=== PATIENT | male | born 1950 | race Caucasian/White ===

== ENCOUNTER → 2023-10-04 06:34 | Day surgery (SDC) | payer OTHER, SELFPAY | LOC: GI 06:34 | PROVIDERS: ATTENDING PHYSICIAN Specialist | DX: Z12.11 Encounter for screening for malignant neoplasm of colon (principal); D12.3 Benign neoplasm of transverse colon; K63.5 Polyp of colon; D17.5 Benign lipomatous neoplasm of intra-abdominal organs; K56.2 Volvulus; Z86.010 Personal history of colon polyps; Z80.0 Family history of malignant neoplasm of digestive organs | CPT/HCPCS: 45385; 45380; 88305 ==

== ENCOUNTER 2023-12-23 11:29 | Emergency (ER) | payer OTHER, SELFPAY ==
[2023-12-23 11:35] VITALS: BP 168/89
[2023-12-23 12:23] VITALS: BMI 36.8
[2023-12-23 12:26] VITALS: BP 143/81
--- NOTE | 2023-12-23 12:40 | EDRN ---
Cheryl DEE in room w/pt at this time.
--- NOTE | 2023-12-23 12:47 | ED.GENMED ---
History of Present Illness
General
Chief Complaint: Skin Problem
Source: patient
Exam Limitations: none
Time Seen by Provider: 12/23/23 12:34
History of Present Illness
History of Present Illness:
73-year-old male presents with abrasion to right anterior knee sustained yesterday. He knelt down on his driveway. He has had a callus on his right knee for quite some time perhaps 15 years that followed an infection in the same area. He has seen
the horse riding coach or instructor for this callus uses a pumice stone and every now and then shaved the callus down. Yesterday when he bent down to pick something up on his driveway he scraped the callus and part of it came off. He is worried about another
infection. No other complaints at this time
Past History
Past History
ED Past Medical History: HTN and Hypercholesterolemia
ED Past Surgical History: Orthopedic
Social History
Tobacco: Non-smoker
Personal:
Living: with family
Employment: Employed
Family History
Family History: CAD
Phy Exam
Physical Exam
Physical Exam:
General: Well-appearing male no acute respiratory distress
Skin: Thick callus noted of the anterior right knee. The superior aspect of the callus has avulsed from the base. No current bleeding. The base of the wound underneath the avulsion is well in appearance no surrounding erythema. Nontender
Musculoskeletal exam: Good range of motion right knee
Course
Vital Signs
Initial and Last Documented VS:
Initial Vital Signs
Temp Pulse Resp BP Pulse Ox
98.1 F 63 18 168/89 95
12/23/23 11:35 12/23/23 11:35 12/23/23 11:35 12/23/23 11:35 12/23/23 11:35
Last Documented Vital Signs
Temp Pulse Resp BP Pulse Ox
98.1 F 59 16 143/81 93
12/23/23 11:35 12/23/23 12:26 12/23/23 12:26 12/23/23 12:26 12/23/23 12:26
MDM/Problems Addressed
Differential Diagnosis Includes:
Abrasion right knee with partial avulsion of chronic callus to the anterior right knee. The avulsed portion was trimmed off with a pair of scissors. A dressing will be applied with antibacterial ointment gauze wrap. Given the history of infection
in this area, will start on Keflex for prophylaxis. Recommend follow-up with family doctor.
*Critical Care Note
Total Time (30-74mins, 75-104mins- exclusive of procedures): Not Applicable
ED Attending Note
-
Portions of this chart may have been created with voice recognition software.� Occasional wrong word or��sound alike� substitutions may have occurred due to the inherent limitations of voice recognition software.
Discharge Plan
Departure
Patient Disposition: Home (Routine Discharge)
Date of Disposition: 12/23/23
Time of Disposition: 12:50
Patient with high blood pressure during this ER visit?: No
Discharge Problem:
Abrasion
Prescriptions:
New
cephalexin 500 mg capsule
500 mg PO TID 7 Days Qty: 21 0RF
No Action
losartan [Cozaar] 100 MG tablet
100 mg PO DAILY
escitalopram oxalate 10 MG tablet
20 mg PO QPM
rosuvastatin 20 MG tablet
20 mg PO QPM
amlodipine 10 mg Tablet
10 mg PO DAILY
buspirone 10 mg Tablet
10 mg PO BID
gabapentin 100 mg Tablet
200 mg PO
trazodone 100 mg Tablet
200 mg PO HS
aspirin 81 mg Tablet,Chewable
81 mg PO DAILY Qty: 30 0RF
pyridostigmine bromide 30 mg tablet
30 mg PO BID PRN (Reason: double vision) Qty: 60 0RF
oxcarbazepine [Trileptal] 150 mg Tablet
See Rx Instructions .ROUTE .COMPLEX Qty: 180 0RF
Rx Instructions:
450 mg orally take in morning AND at 4 PM
oxcarbazepine [Trileptal] 300 mg Tablet
600 mg PO HS Qty: 0 0RF
Activity Restrictions/Additional Instructions:
Change dressing daily. Apply antibacterial ointment daily. Take antibiotic as directed. Return if worse otherwise follow-up with family
Interventions
Interventions:
*Risk Screen - Suicide Last Done: 12/23/23 11:35
*General Assessment Last Done: 12/23/23 11:35
*Neglect/Abuse Screening Last Done: 12/23/23 11:35
ED- Fall Risk Assessment Last Done: 12/23/23 12:24
*ED COVID-19 Vaccine History Last Done: 12/23/23 12:24
ED-Skin Assessment Last Done: 12/23/23 12:24
Discharge Date and Time
Print Language: MONGOLIAN
--- NOTE | 2023-12-23 13:04 | EDRN ---
R anterior knee dressed w/ double antibiotic ointment, telfa pad and kerlix.
== END 2023-12-23 13:15 | disposition home or self-care (01) ==
LOC: EMR 11:29
PROVIDERS: EMERGENCY PHYSICIAN Emergency Medicine; FAMILY PHYSICIAN Family Medicine
DX: S80.211A Abrasion, right knee, initial encounter (principal); X58.XXXA Exposure to other specified factors, initial encounter; I10 Essential (primary) hypertension; E78.00 Pure hypercholesterolemia, unspecified
CPT/HCPCS: 99282

== ENCOUNTER → 2024-01-09 09:49 | Outpatient (REF) | payer OTHER, SELFPAY | LOC: RAD 09:49 | PROVIDERS: ATTENDING PHYSICIAN Internal Medicine Cardiovascular Disease; FAMILY PHYSICIAN Family Medicine | DX: I25.10 Atherosclerotic heart disease of native coronary artery without angina pectoris (principal) | CPT/HCPCS: 76770 ==

== ENCOUNTER 2024-11-18 14:35 | Emergency (ER) | payer OTHER, SELFPAY ==
[2024-11-18 14:42] VITALS: BP 158/91
--- NOTE | 2024-11-18 16:21 | ED.MUSCINJ ---
HPI-Injury
General
Chief Complaint: Musculo-Skeletal Complaint
Source: patient
Exam Limitations: none
Time Seen by Provider: 11/18/24 16:10
Nursing documentation reviewed up to this point in time: agreed with
History of Present Illness-Injury
Initial Injury comments:
The patient is a 74-year-old male w h/o HTN, HLD, about 3 hours ago at home, involving a heavy backyard barbecue grill that fell over, striking his right mid monk. Approximately 20 minutes later, the patient noted a substantial swelling at the
site of impact. He described the area as a 'huge lump' but reported no significant pain hindering his mobility. The patient can walk and apply pressure on the affected leg. However, he experienced increased aching while attempting to maintain a
brisk pace. He has not experienced numbness or tingling in the leg.
Meds:
ASA 1 mg
Buspar
Lexapro
Past History
Past History
ED Past Medical History: HTN and Hypercholesterolemia
ED Past Surgical History: Orthopedic
Social History
Tobacco: Non-smoker
Personal:
Living: with family
Employment: Employed
Family History
Family History: CAD
Review of Systems
Review of Systems
Allergies reviewed?: Yes
All Other Systems: ROS reviewed and negative except as documented in HPI and ROS
Musculoskeletal: Reports other (swelling, bruising, tenderness mid right monk)
Phy Exam
Physical Exam
Physical Exam:
PHYSICAL EXAMINATION:
General: no apparent distress, not acutely ill
Neuro: alert and oriented.
Psychiatric: well kept. interactive and cooperative
Musculoskeletal: Moves with ease. Full range of motion of right lower extremity. No significant bony tenderness
Skin: Warm, pink. Small deep clean abrasion mid monk. Surrounded by moderate swelling and ecchymosis. Distal neurovascular intact.
Injury Course
Orders/Labs/Results
Orders:
Orders
11/18/24 14:44
Leg Tibia/Fibula, Right 2 View [CR Leg Tibia/fibula Right 2 Vw] Urgent
Comment:
Reason For Exam: pain/injury/swelling
11/18/24 16:29
Otoniel Wrap Right-Treatment ONCE
MDM/Problems Addressed
Differential Diagnosis Includes:
contusion, hematoma, fracture
MDM/Problems Addressed:
The patient is a 74-year-old male w h/o HTN, HLD, about 3 hours ago at home, involving a heavy backyard barbecue grill that fell over, striking his right mid monk. Approximately 20 minutes later, the patient noted a substantial swelling at the
site of impact. He described the area as a 'huge lump' but reported no significant pain hindering his mobility. The patient can walk and apply pressure on the affected leg. However, he experienced increased aching while attempting to maintain a
brisk pace. He has not experienced numbness or tingling in the leg.
Xray neg for fracture.
Pt ambulating well.
Is UTD with Tdap.
*Radiology
Radiology exam reviewed: preliminary read by ED provider
*Pulse Oximetry
SaO2: 96
Oxygen Mode of Delivery: Room air
Patient hypoxic: not evaluated
*Critical Care Note
Total Time (30-74mins, 75-104mins- exclusive of procedures): Not Applicable
ED Attending Note
-
Portions of this chart may have been created with voice recognition software.� Occasional wrong word or��sound alike� substitutions may have occurred due to the inherent limitations of voice recognition software.
Discharge Plan
Departure
Patient Disposition: Home (Routine Discharge)
Date of Disposition: 11/18/24
Time of Disposition: 16:31
Patient with high blood pressure during this ER visit?: No
Condition: Good
Discharge Problem:
Hematoma of right lower leg
Instructions: Using Cold for Pain, Hematoma
Prescriptions:
No Action
losartan [Cozaar] 100 MG tablet
100 mg PO DAILY
escitalopram oxalate 10 MG tablet
20 mg PO QPM
rosuvastatin 20 MG tablet
20 mg PO QPM
amlodipine 10 mg Tablet
10 mg PO DAILY
buspirone 10 mg Tablet
10 mg PO BID
gabapentin 100 mg Tablet
200 mg PO
trazodone 100 mg Tablet
200 mg PO HS
aspirin 81 mg Tablet,Chewable
81 mg PO DAILY Qty: 30 0RF
pyridostigmine bromide 30 mg tablet
30 mg PO BID PRN (Reason: double vision) Qty: 60 0RF
oxcarbazepine [Trileptal] 150 mg Tablet
See Rx Instructions .ROUTE .COMPLEX Qty: 180 0RF
Rx Instructions:
450 mg orally take in morning AND at 4 PM
oxcarbazepine [Trileptal] 300 mg Tablet
600 mg PO HS Qty: 0 0RF
cephalexin 500 mg capsule
500 mg PO TID 7 Days Qty: 21 0RF
Referrals:
Arlette Kee MD [Family Provider, Family Practice] - As needed
Activity Restrictions/Additional Instructions:
As we discussed, rest with the foot elevated to the level of your heart and apply Cold compress 20 minutes off and on as much as you can in the next 2 days.
[place] may pull the blood down and cause bruising down the leg and into the foot, this may look bad but it is not worrisome.
Interventions
Interventions:
*Risk Screen - Suicide Last Done: 11/18/24 14:42
*Neglect/Abuse Screening Last Done: 11/18/24 14:42
*Nursing Disposition Last Done: 11/18/24 17:22
ED-Musculoskeletal Assessment Last Done: 11/18/24 15:52
Discharge Date and Time
Discharge Date/Time: 11/18/24 17:23
Print Language: WALLISIAN
== END 2024-11-18 17:23 | disposition home or self-care (01) ==
LOC: EMR 14:35
PROVIDERS: EMERGENCY PHYSICIAN Emergency Medicine; FAMILY PHYSICIAN Family Medicine
DX: S80.11XA Contusion of right lower leg, initial encounter (principal); W20.8XXA Other cause of strike by thrown, projected or falling object, initial encounter; E78.00 Pure hypercholesterolemia, unspecified; I10 Essential (primary) hypertension
CPT/HCPCS: 99283; 73590

== ENCOUNTER 2024-12-13 13:20 | Emergency (ER) | payer OTHER, SELFPAY ==
[2024-12-13 13:23] VITALS: BP 184/90
[2024-12-13 13:32] VITALS: BP 136/84; BMI 27.5
--- NOTE | 2024-12-13 15:19 | ED.SKININJ ---
HPI-Injury
General
Chief Complaint: Skin Problem
Source: patient and spouse
Exam Limitations: none
Time Seen by Provider: 12/13/24 14:13
Nursing documentation reviewed up to this point in time: agreed with
History of Present Illness-Injury
Is this injury a work related problem?: No
Is pt an associate of [facility]?: No
Initial Injury comments:
Note:
CHIEF COMPLAINT(S)
Laceration to the left palmar distal index finger, middle finger, third finger, and pinky.
HISTORY OF PRESENT ILLNESS
A 74-year-old male presented with lacerations to the left palmar distal index finger, middle finger, third finger, and pinky. The patient mentions that he has high blood pressure, which is well-controlled with medication. During the examination, it
was determined that the lacerations would require suturing. The patient reported a history of swelling after a penicillin shot received years ago. Local anesthesia and digital blocks with lidocaine was planned for the fingers, along with thorough
washing of the wound and initiation of antibiotic therapy. The patient expressed willingness to adhere to the proposed treatment.
PAST MEDICAL AND SURGICAL HISTORY
Hypertension, well-controlled with medication.
ALLERGIES
Suspected allergy to penicillin noted due to swelling experienced after administration years ago.
REVIEW OF SYSTEMS
- Cardiovascular: Positive for high blood pressure.
- Skin: Lacerations present on the left palmar distal index, middle, third, and pinky fingers.
PHYSICAL EXAM
General: Alert, no acute distress.
Skin: Warm, dry. Dressing covers lacerations on left palmar distal index, middle, third, and pinky fingers.
Cardiovascular: Normal peripheral perfusion, capillary refill less than two seconds in all affected fingers.
Musculoskeletal: Full range of motion, normal tendon function in affected fingers.
PLAN
1. Administer local anesthesia with lidocaine to numb the affected fingers.
2. Irrigate and clean the wound thoroughly.
3. Suture the lacerations on the left palmar distal index, middle, third, and pinky fingers.
4. Prescribe an antibiotic course for a few days.
5. Monitor for any signs of allergic reaction to medications, especially antibiotics.
DIFFERENTIAL DIAGNOSIS
The Differential Diagnosis includes, in no particular order and is not limited to:
1. Laceration with potential for infection.
2. Soft tissue injury of the hand.
3. Tendon injury.
4. Nerve injury.
5. Foreign body in the wound.
6. Penicillin allergy.
7. Hypertension-related complications.
8. Bacterial skin infection.
9. Crush injury.
10. Fracture with soft tissue injury.
CARE-UPDATE
12/13/24 - 15:34
Sutures placed using 4-0 nylon on 2nd, 3rd, and 4th fingers. Tetanus status confirmed as current. Start prophylactic antibiotics and schedule follow-up with primary care in 7 to 10 days for suture removal. No additional injuries identified, and
neurovascular status remains intact.
Disposition:
SUMMARY OF ENCOUNTER
A 74-year-old male presented with lacerations to the left palmar distal index finger, middle finger, third finger, and pinky, requiring suturing. Due to a suspected allergy to penicillin, alternatives were considered for antibiotic therapy. The
patient�s tetanus status was confirmed as current. Local anesthesia with lidocaine was administered, the wound was thoroughly irrigated, and sutures were placed using 4-0 nylon.
DISPOSITION
Discharge home.
ASSESSMENT
Lacerations on the left hand involving the second, third, fourth, and fifth fingers.
PLAN
- Administer local anesthesia with lidocaine and perform wound irrigation.
- Suture lacerations using 4-0 nylon.
- Prescribe an appropriate antibiotic while monitoring for allergic reactions.
- Discharge with recommendations for follow-up care.
PROCEDURES
Suturing of lacerations on the left palmar distal second, third, fourth, and fifth fingers with 4-0 nylon sutures.
FOLLOW-UP INSTRUCTIONS
Follow up with primary care in seven to ten days for suture removal.
MEDICAL DECISION MAKING
-Complexity of Data Reviewed: Chronic conditions affecting care [Hypertension]
-Data:
Category 1
Testing indicated potential for infection and neurovascular compromise; ultimately resolved with imaging and clinical evaluation.
Category 2
My independent interpretation of hands-on examination and manual assessment confirmed tendon and nerve integrity remained unaffected.
-Risk: Prescription medication was prescribed and monitored for potential allergies due to the patients known penicillin-like reaction history.
DIAGNOSIS
- Laceration of left hand, finger(s), initial encounter (ICD-10: S61.419A)
Past History
Past History
ED Past Medical History: HTN and Hypercholesterolemia
ED Past Surgical History: Orthopedic
Social History
Tobacco: Non-smoker
Personal:
Living: with family
Employment: Employed
Family History
Family History: CAD
Phy Exam
Physical Exam
Physical Exam:
.
Course
Vital Signs
Initial and Last Documented VS:
Initial Vital Signs
Temp Pulse Resp BP Pulse Ox
98 F 94 16 184/90 100
12/13/24 13:23 12/13/24 13:23 12/13/24 13:23 12/13/24 13:23 12/13/24 13:23
Last Documented Vital Signs
Temp Pulse Resp BP Pulse Ox
98.2 F 82 20 136/84 99
12/13/24 13:32 12/13/24 13:32 12/13/24 13:32 12/13/24 13:32 12/13/24 15:20
Procedures
Laceration Closure
Left Palmar Finger(s):
Size of Wound in cm: 6
Description of Wound Edges: sharp and flap-well vascularized
Preparation: cleaned with soap & water, cleaned with saline and cleaned with Betadine
Anesthesia: 1% Lidocaine and Digital-Regional
Revision/Debridement: routine- no revision and irrigate-direct pressure
Wound exploration: explored to base- no FB
Type of Closure: single layer closure
Skin Closure Material: 4-0 nylon
Number of sutures: 12
*Pulse Oximetry
SaO2: 99
Oxygen Mode of Delivery: Room air
Patient hypoxic: no
*Critical Care Note
Total Time (30-74mins, 75-104mins- exclusive of procedures): Not Applicable
ED Attending Note
-
Portions of this chart may have been created with voice recognition software.� Occasional wrong word or��sound alike� substitutions may have occurred due to the inherent limitations of voice recognition software.
Discharge Plan
Departure
Patient Disposition: Home (Routine Discharge)
Date of Disposition: 12/13/24
Time of Disposition: 15:20
Patient with high blood pressure during this ER visit?: Yes
Condition: Good
Discharge Problem:
Laceration of multiple sites of left hand and fingers
Instructions: Wound Care (DC), Stitches - ED discharge instructions, BLOOD PRESSURE
Prescriptions:
New
cephalexin 500 mg capsule
500 mg PO TID 7 Days Qty: 21 0RF
No Action
losartan [Cozaar] 100 MG tablet
100 mg PO DAILY
escitalopram oxalate 10 MG tablet
20 mg PO QPM
rosuvastatin 20 MG tablet
20 mg PO QPM
amlodipine 10 mg Tablet
10 mg PO DAILY
buspirone 10 mg Tablet
10 mg PO BID
gabapentin 100 mg Tablet
200 mg PO DAILY
trazodone 100 mg Tablet
200 mg PO HS
aspirin 81 mg Tablet,Chewable
81 mg PO DAILY Qty: 30 0RF
pyridostigmine bromide 30 mg tablet
30 mg PO BID PRN (Reason: double vision) Qty: 60 0RF
oxcarbazepine [Trileptal] 150 mg Tablet
See Rx Instructions .ROUTE .COMPLEX Qty: 180 0RF
Rx Instructions:
450 mg orally take in morning AND at 4 PM
oxcarbazepine [Trileptal] 300 mg Tablet
600 mg PO HS Qty: 0 0RF
cephalexin 500 mg capsule
500 mg PO TID 7 Days Qty: 21 0RF
Referrals:
Arlette Kee MD [Family Provider, Family Practice] - Call in 1-3 days for appt
Referral Note: suture removal in 7-10 days
Interventions
Interventions:
*Risk Screen - Suicide Last Done: 12/13/24 13:23
*General Assessment Last Done: 12/13/24 13:32
*Neglect/Abuse Screening Last Done: 12/13/24 13:23
*ED- Fall Risk Assessment Last Done: 12/13/24 13:32
*ED COVID-19 Vaccine History Last Done: 12/13/24 13:32
*Nursing Disposition Last Done: 12/13/24 16:11
ED-Skin Assessment Last Done: 12/13/24 13:32
Discharge Date and Time
Discharge Date/Time: 12/13/24 16:12
Print Language: SLOVENIAN
== END 2024-12-13 16:12 | disposition home or self-care (01) ==
LOC: EMR 13:20
PROVIDERS: EMERGENCY PHYSICIAN Emergency Medicine; FAMILY PHYSICIAN Family Medicine
DX: S61.412A Laceration without foreign body of left hand, initial encounter (principal); S61.211A Laceration without foreign body of left index finger without damage to nail, initial encounter; S61.213A Laceration without foreign body of left middle finger without damage to nail, initial encounter; S61.215A Laceration without foreign body of left ring finger without damage to nail, initial encounter; S61.217A Laceration without foreign body of left little finger without damage to nail, initial encounter; W29.3XXA Contact with powered garden and outdoor hand tools and machinery, initial encounter; I10 Essential (primary) hypertension; E78.00 Pure hypercholesterolemia, unspecified; Z79.899 Other long term (current) drug therapy
CPT/HCPCS: 12002; 99283